=== PATIENT | male | born 1945 | race Caucasian/White ===

== ENCOUNTER 2024-01-30 09:15 | Observation (INO) | payer BC, MEDICARE ==
[2024-01-28 15:44] LABS: BASOPHILS % (AUTO) 0.4 % (0-1); EOSINOPHILS # (AUTO) 0.1 X10'3 (0-0.9); EOSINOPHILS % (AUTO) 0.6 % (0-6); LYMPHOCYTES # (AUTO) 1.8 X10'3 (1.1-4.8); LYMPHOCYTES % (AUTO) 16.7 % (21-51); MEAN CORPUSCULAR HEMOGLOBIN 34.1 PG (27.0-31.0); MEAN CORPUSCULAR HGB CONC 34.7 g/dL (33.0-36.5); MEAN CORPUSCULAR VOLUME 98.3 FL (78-98); MEAN PLATELET VOLUME 8.5 FL (7.4-10.4); MONOCYTES # (AUTO) 1.1 X10'3 (0-0.9); MONOCYTES % (AUTO) 10.3 % (2-12); NEUTROPHILS # (AUTO) 7.8 X10'3 (1.8-7.7); PRE OP HEMOGLOBIN 14.9 g/dL (14.0-17.9); PRE OP PLATELET COUNT 213 X10'3 (140-440); PRE OP WHITE BLOOD COUNT 10.9 10'3 (4.8-10.8); RED BLOOD COUNT 4.37 X10'6 (4.70-6.10); RED CELL DISTRIBUTION WIDTH 14.8 % (11.5-14.5)
[2024-01-28 15:54] LABS: BILIRUBIN,URINE NEGATIVE (Neg); CLARITY,URINE CLEAR (Clear); COLOR,URINE YELLOW (Yellow); GLUCOSE, URINE NEGATIVE (Neg); KETONES,URINE NEGATIVE (Neg); LEUKOCYTE ESTERASE ,URINE NEGATIVE (Neg); NITRITES, URINE NEGATIVE (Neg); OCCULT BLOOD,URINE NEGATIVE (Neg); PROTEIN,URINE NEGATIVE (Neg)
[2024-01-28 15:58] LABS: UA COLLECTION TYPE CLN CATCH MIDSTREAM
[2024-01-28 15:59] LABS: PRE OP PROTIME 10.9 SECONDS (9.0-12.0)
[2024-01-28 16:01] LABS: ALBUMIN 4.2 G/DL (3.4-5.0); ALBUMIN/GLOBULIN RATIO 1.4 (1.1-1.5); ALKALINE PHOSPHATASE 92 IU/L (46-116); BLOOD UREA NITROGEN 26 MG/DL (7-18); BUN/CREATININE RATIO 32.5 (10.0-20.0); CALCIUM 9.6 MG/DL (8.5-10.1); CHLORIDE 104 MMOL/L (99-107); PRE OP ALT 34 U/L (30-65); PRE OP ANION GAP 5 (8-16); PRE OP AST 18 U/L (10-37); PRE OP BILIRUB, TOTAL 1.3 MG/DL (0.0-1.0); PRE OP GLUCOSE 109 MG/DL (70-104); PRE OP POTASSIUM 4.1 MMOL/L (3.4-5.1); PRE OP SODIUM 139 MMOL/L (135-145); TOTAL CARBON DIOXIDE 30.2 MMOL/L (24-32); TOTAL PROTEIN 7.1 G/DL (6.4-8.2); eGFR > 90 ML/MIN
[~2024-01-30] VITALS: Ht 175.3 cm; Wt 68.0 kg
[2024-01-30] VITALS (25 sets, daily range): BP systolic 114–150; BP diastolic 47–91; PULSE 60–94; RESP 8–22; TEMP 97.1–97.9; O2SAT 61–100
[2024-01-30] MEDS: cefazolin 2gm/D5W 100mL 100 ML IV ONE (05:30)
[~2024-01-30 09:15] MED LIST: A REDS PO; AMLO5TAB16 PO; ASPI-1264 PO; ATOR-2 PO; CELE-148 PO; LISI1TAB51 PO; MULT-1085 PO; NIAC500C12 PO; OMEP20CA16 PO; PARO-153 PO
[2024-01-30] MEDS: ringers solution, lacted 1,000 ML IV SCH (10:05)
[2024-01-30] MEDS: famotidine 20mg tablet PO ONE (10:05)
[2024-01-30] MEDS ORDERED: MIDAZolam 1 MG/ML 5ML VIAL ONE (11:44)
[2024-01-30] MEDS ORDERED: fentaNYL/PF 50MCG/1 ML 2ML syringe ONE (11:44)
[2024-01-30] MEDS ORDERED: LIDOcaine 2% (20mg/ml) 5ml vial ONE (11:51)
[2024-01-30] MEDS ORDERED: propofol inj 20 ML IV ONE (11:54)
[2024-01-30] MEDS: LIDOcaine 1% (10mg/ml)w/preservative inj. 20ml MDV SQ ONE (12:10)
[2024-01-30] MEDS ORDERED: ondansetron/PF 4mg/2ml inj IV PRN (13:10)
[2024-01-30] MEDS ORDERED: HYDROcodone/acetaminophen 10/325mg tab PO PRN (13:10)
[2024-01-30] MEDS ORDERED: naloxone 0.4 mg/ml inj IV PRN (13:10)
[2024-01-30] MEDS: LIDOcaine 1% (10mg/ml)w/preservative inj. 20ml MDV ONE (13:27)
[2024-01-30] MEDS: potassium CL 20mEq in D5-1/2NS 1,000 ML IV SCH (13:37)
[2024-01-30] MEDS: ceFAZolin inj. 1,000 MG in dextrose 5%-water 50ml 50 ML IV SCH (17:30)
[2024-01-30] MEDS: amLODIPine 5mg tablet PO SCH (20:05)
[2024-01-30] MEDS: multivitamins, therapeutics tablet PO SCH (20:05)
[2024-01-30] MEDS: atorvastatin 20mg tablet PO SCH (20:06)
[2024-01-30] MEDS: aspirin 325mg tablet PO SCH (20:06)
[2024-01-31 02:00] VITALS: BP 156/77; PULSE 62; RESP 18; TEMP 98.2; O2SAT 96
[2024-01-31 06:00] VITALS: BP 168/73; PULSE 68; RESP 15; TEMP 98.2; O2SAT 96
[2024-01-31 08:00] VITALS: RESP 15; O2SAT 96
[2024-01-31] MEDS ORDERED: A REDS PO SCH (08:00)
[2024-01-31] MEDS: lisinopril 20mg tablet PO SCH (08:26)
[2024-01-31] MEDS: pantoprazole 40mg Tablet.DR PO SCH (08:27)
[2024-01-31] MEDS: HYDROchlorothiazide 12.5mg capsule PO SCH (08:27)
[2024-01-31] MEDS: celeCOXIB 100mg capsule PO SCH (08:27)
[2024-01-31] MEDS: niacin 500mg timed-release capsule PO SCH (08:28)
[2024-01-31] MEDS: normal saline 1000ml 1,000 ML IV SCH (08:29)
[2024-01-31] MEDS: PARoxetine 10mg tablet PO SCH (10:16)
[2024-01-31 11:00] VITALS: BP 150/92; PULSE 69; RESP 15; TEMP 98.1; O2SAT 96
[2024-01-31 11:10] VITALS: RESP 15; O2SAT 96
== END 2024-01-31 14:10 | disposition home or self-care (01) ==
LOC: PAS 09:15 → INTOOBSV 15:20 → PCU 3S 15:20
PROVIDERS: ADMIT Surgery; ATTEND Surgery
DX: I44.2 Atrioventricular block, complete (principal); I10 Essential (primary) hypertension; I25.10 Atherosclerotic heart disease of native coronary artery without angina pectoris; M19.90 Unspecified osteoarthritis, unspecified site; Z95.1 Presence of aortocoronary bypass graft; Z79.899 Other long term (current) drug therapy
CPT/HCPCS: 33208; 36415; 71045; 71046; 71048; 80053; 81003; 82948; 85025; 85610; 85730; 86885; 86900; 86901; 87081; 93005; 96365; 96366; C1785; C1898; G0378; J0690; J2250; J2704; J3010; J3480; J3490; J7030; J7060; J7120; A4215; A4565; A4615; A4618; A6258; A7000